=== PATIENT | female | born 1975 | race African-American/Black ===

== ENCOUNTER 2017-06-02 18:00 | Emergency (ER) | payer OTHER ==
[2017-06-02 18:14] VITALS: BP 126/68; PULSE 111; TEMP 97.6; BMI 33.0
[2017-06-02] MEDS ORDERED: CYCLOBENZAPRINE HCL 10 MG TABLET (FP) PO ONE (18:14)
[2017-06-02] MEDS ORDERED: HYDROmorphone HCL CARPU-JECT 1 MG/1 ML DISP.SYRIN IVPB ONE ×2 (18:14→19:03)
[2017-06-02] MEDS ORDERED: KETOROLAC TROMETHAMINE 30 MG/1 ML VIAL IVPUSH ONE (18:14)
[2017-06-02] MEDS ORDERED: CYCLOBENZAPRINE HCL 10 MG TABLET (FP) ONE (18:18)
[2017-06-02] MEDS ORDERED: HYDROmorphone HCL CARPU-JECT 1 MG/1 ML DISP.SYRIN ONE (18:28)
[2017-06-02] MEDS ORDERED: KETOROLAC TROMETHAMINE 30 MG/1 ML VIAL ONE (18:28)
[2017-06-02 18:49] LABS: ANION GAP 14 (8-16); BASOPHIL 3.8 % (0-2.0); CALCIUM 9.5 mg/dl (8.4-10.2); CO2 19 mmol/L (22-28); CREATININE 0.9 mg/dl (0.6-1.3); EOSINOPHIL 0.5 % (0-4.5); GLUCOSE,RANDOM 78 mg/dl (74-106); MCH 29.6 pg (25.7-33.7); MCHC 33.8 g/dl (32.0-36.0); MEAN CELL VOLUME 87.8 fl (80-96); MEAN PLT VOLUME 8.3 fl (7.5-11.1); NEUTROPHILS 74.3 % (42.8-82.8); PLATELET COUNT 325 K/MM3 (134-434); RDW 14.9 % (11.6-15.6); WHITE BLOOD COUNT 7.4 K/mm3 (4.0-10.8)
--- NOTE | 2017-06-02 19:03 | PDOC ---
History of Present Illness - General History Source: Patient Exam Limitations: No Limitations - History of Present Illness Initial Comments: 06/02/17 19:04 Patient is a 41 year old female with no pmhx who presents today s/p fall. 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 She notes that the stairs that she was walking up need to be fixed and her company has placed many complaints to the [employer]. The patient states that she remained on the floor until EMS arrived. She now reports lower back pain, neck pain, L wrist and L ankle pain. Patient states that she is unable to move secondary to pain. She reports hitting her head during the fall. She denies LOC. PSH - gastric sleeve January NKA <Brooke Waddell - Last Filed: 06/02/17 19:04> - General History Source: Patient Exam Limitations: No Limitations <Jessica Diaz - Last Filed: 06/06/17 08:43> - General Chief Complaint: Injury Stated Complaint: SLIP & FALL, HEAD, NECK, LF ANKLE, LF WRIST PAIN Time Seen by Provider: 06/02/17 18:05 Past History <Brooke Waddell - Last Filed: 06/02/17 19:04> - Surgical History Abdominal Surgery: Yes (GASTRIC SLEEVE) - Psycho/Social/Smoking Cessation Hx Anxiety: No Suicidal Ideation: No Smoking History: Never smoked Have you smoked in the past 12 months: No Information on smoking cessation initiated: No Hx Alcohol Use: (weekends) <Jessica Diaz - Last Filed: 06/06/17 08:43> - Past Medical History Allergies/Adverse Reactions: Allergies Allergy/AdvReac Type Severity Reaction Status Date / Time No Known Allergies Allergy Verified 06/02/17 18:06 Home Medications: Ambulatory Orders Cyclobenzaprine HCl [Flexeril 10 mg] 10 mg PO BID #14 tablet 06/02/17 Multivitamins [Tab-A-Vit -] 1 tab PO DAILY 06/02/17 Naproxen [Naprosyn -] 500 mg PO BID #14 tablet 06/02/17 Review of Systems - Review of Systems Able to Perform ROS?: Yes Comments:: 06/02/17 19:04 GENERAL/CONSTITUTIONAL: No: fever, chills, weakness, loss of appetite. HEAD, EYES, EARS, NOSE AND THROAT: No: change in vision, ear pain, discharge, sore throat, throat swelling. CARDIOVASCULAR: No: chest pain, lightheadedness, palpitations, syncope RESPIRATORY: No: cough, shortness of breath, wheezing, hemoptysis, stridor. GASTROINTESTINAL: No: nausea, vomiting, abdominal cramping, diarrhea, rectal bleeding, constipation. GENITOURINARY: No: dysuria, hematuria, frequency, urgency, flank pain. MUSCULOSKELETAL: Yes: back pain, neck pain, left wrist pain and left ankle pain SKIN: No: lesions, pallor, rash or easy bruising. NEUROLOGIC: No: headache, vertigo, paresthesias, weakness ENDOCRINE: No: unexplained weight gain or loss HEMATOLOGIC/LYMPHATIC: No: anemia, easy bleeding, swelling nodes <Brooke Waddell - Last Filed: 06/02/17 19:04> *Physical Exam - Vital Signs Last Vital Signs Temp Pulse Resp BP Pulse Ox 97.6 F 111 H 20 126/68 96 06/02/17 18:00 06/02/17 18:00 06/02/17 18:00 06/02/17 18:00 06/02/17 18:00 - Physical Exam Comments: 06/02/17 19:05 GENERAL: The patient is in no acute distress. HEAD: Normal with no signs of trauma. EYES: PERRLA, EOMI, sclera anicteric, conjunctiva clear. ENT: Ears normal, nares patent, oropharynx clear without exudates. Moist mucous membranes. NECK: Normal range of motion, supple without lymphadenopathy, JVD, or masses. LUNGS: Breath sounds equal, clear to auscultation bilaterally. No wheezes, and no crackles. HEART:Regular rate and rhythm, normal S1 and S2 without murmur, rub or gallop. ABDOMEN: Soft, nontender, normoactive bowel sounds. No guarding, no rebound. EXTREMITIES: (+)Left forearm abrasion, Can move all extremities, Sensation intact. Normal range of motion, no edema. No clubbing or cyanosis. No erythema. NEUROLOGICAL:(+)Answers all questions. A&OX3. Cranial nerves II through XII grossly intact. Normal speech. No focal neurological deficits. MUSCULOSKELETAL: (+)Diffusely tender over cervical and lower back SKIN: Warm, Dry, normal turgor, no rashes or lesions noted. <Brooke Waddell - Last Filed: 06/02/17 19:04> - Vital Signs Last Vital Signs Temp Pulse Resp BP Pulse Ox 97.6 F 111 H 20 126/68 96 06/02/17 18:00 06/02/17 18:00 06/02/17 18:00 06/02/17 18:00 06/02/17 18:00 <Jessica Diaz - Last Filed: 06/06/17 08:43> ED Treatment Course - LABORATORY CBC & Chemistry Diagram: 06/02/17 18:20 06/02/17 18:20 - ADDITIONAL ORDERS Additional order review: Laboratory Results 06/02/17 06/02/17 18:20 18:20 Sodium 139 Potassium 3.5 Chloride 106 Carbon Dioxide 19 L Anion Gap 14 BUN 10 Creatinine 0.9 Random Glucose 78 Calcium 9.5 Serum , Qual Negative 06/02/17 18:20 RBC 4.42 MCV 87.8 MCHC 33.8 RDW 14.9 MPV 8.3 Neutrophils % 74.3 Lymphocytes % 16.7 Monocytes % 4.7 Eosinophils % 0.5 Basophils % 3.8 H - Medications Given in the ED: ED Medications Discontinued Medications Generic Name Dose Route Start Last Admin Trade Name Tena PRN Reason Stop Dose Admin Cyclobenzaprine HCl 10 mg 06/02/17 18:14 06/02/17 18:25 Flexeril - PO 06/02/17 18:15 10 mg ONCE ONE Administration Hydromorphone HCl 0.5 mg 06/02/17 18:14 06/02/17 18:30 Dilaudid Injection - IVPB 06/02/17 18:15 0.5 mg NOW ONE Administration Ketorolac Tromethamine 30 mg 06/02/17 18:14 06/02/17 18:35 Toradol Injection - IVPUSH 06/02/17 18:15 30 mg ONCE ONE Administration <Brooke Waddell - Last Filed: 06/02/17 19:04> - LABORATORY CBC & Chemistry Diagram: 06/02/17 18:20 06/02/17 18:20 - ADDITIONAL ORDERS Additional order review: Laboratory Results 06/02/17 06/02/17 18:20 18:20 Sodium 139 Potassium 3.5 Chloride 106 Carbon Dioxide 19 L Anion Gap 14 BUN 10 Creatinine 0.9 Random Glucose 78 Calcium 9.5 Serum , Qual Negative 06/02/17 18:20 RBC 4.42 MCV 87.8 MCHC 33.8 RDW 14.9 MPV 8.3 Neutrophils % 74.3 Lymphocytes % 16.7 Monocytes % 4.7 Eosinophils % 0.5 Basophils % 3.8 H - RADIOLOGY Radiology Studies Ordered: Category Date Time Status CERVICAL SPINE CT W/O CONTR [CT] Stat CT Scan 06/02/17 18:[address] WITHOUT CONTRAST [CT] Stat CT Scan 06/02/17 18:[address] W/O CONTRAST [CT] Stat CT Scan 06/02/17 18:15 Ordered ANKLE & FOOT-LEFT* [RAD] Stat Radiology 06/02/17 18:20 Ordered WRIST-LEFT [RAD] Stat Radiology 06/02/17 18:15 Ordered - Medications Given in the ED: ED Medications Discontinued Medications Generic Name Dose Route Start Last Admin Trade Name Freq PRN Reason Stop Dose Admin Cyclobenzaprine HCl 10 mg 06/02/17 18:14 06/02/17 18:25 Flexeril - PO 06/02/17 18:15 10 mg ONCE ONE Administration <Jessica Diaz - Last Filed: 06/06/17 08:43> Medical Decision Making - Medical Decision Making 06/02/17 19:02 A portion of this note was documented by scribe services under my direction. I have reviewed the details of the note, within reason, and agree with the documentation with the following case summary and management plan written by me. Nursing documentation reviewed and incorporated into medical decision making This patient is a 41 yo F, no significant past medical history Pt presents to the ER via EMS s/p fall Pt presents withOUT cervical collar, appearing very uncomfortable. 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 Pt screams in pain with even small movements I am unable to completely examine her as even minimal palpation/movement causes patient to scream in pain Pt given Dilaudid and Toradol and Flexeril As no cervical collar was applied, we have applied cervical collar After pain medications given, we were able to cut off her shirt and remove bra Pt is able to delineate the locations of her pain We are still not able to move this patient at all on account of severe pain Left wrist is painful Occipital scalp, cervical spine painful Pt states lower back is painful Will do basic labs in the event this patient is unable to be discharged Will do Head, Cervical spine, Lumbar spine CT Will give additional pain medications Pt signed out to Dr Monte pending re assessment, imaging, labs Clinical impression: possible fracture? vs musculoskeletal pain <Jessica Diaz - Last Filed: 06/06/17 08:43> *DC/Admit/Observation/Transfer - Attestations Scribe Attestion: 06/02/17 19:06 Documentation prepared by TREMAINE Sutherland, acting as medical records manager for Jessica Diaz MD. <Brooke Waddell - Last Filed: 06/02/17 19:04> <Jessica Diaz - Last Filed: 06/06/17 08:43> Diagnosis at time of Disposition: Cervical strain, acute Qualifiers: Qualified Code(s): S16.1XXA - Strain of muscle, fascia and tendon at neck level , initial encounter Back strain Qualifiers: Qualified Code(s): S39.012A - Strain of muscle, fascia and tendon of lower back , initial encounter Fall Qualifiers: Qualified Code(s): W19.XXXA - Unspecified fall, initial encounter - Discharge Dispostion Disposition: HOME Condition at time of disposition: Stable - Prescriptions Prescriptions: Cyclobenzaprine HCl [Flexeril 10 mg] 10 mg PO BID #14 tablet Naproxen [Naprosyn -] 500 mg PO BID #14 tablet - Patient Instructions Printed Discharge Instructions: DI for Closed Head Injury Additional Instructions: For the pain take naproxen 1 tablet twice a day. In addition to the naproxen you can also take Tylenol. For muscle spasm take Flexeril one tablet twice a day the Flexeril may make you drowsy so do not take it if you need to work or do anything that requires your concentration. Follow-up with an orthopedist if not improved in 3-4 days. If you need an orthopedist call Dr. Liang at [phone] for an appointment. Someone should check on you once tonight during the night. You should be arousable to your Normal level of arousability for that time of the night. If you have been vomiting, have had a seizure, or you are unable to be aroused or the person checking on you is concerned that there has been a change in your mental status they should call 911 and have you brought back to the emergency department. Return to the emergency department immediately with ANY new, persistent or worsening symptoms. Continue any medications as previously prescribed by your physician. You should follow up with your primary doctor as soon as possible regarding today's emergency department visit. . Please make sure your doctor reviews the results of your emergency evaluation. Thank you for coming to the Emergency Department today for your care. It was a pleasure to see you today. Please note that your evaluation is INCOMPLETE until you follow-up with your doctor. - Post Discharge Activity Work/School Note: Back to Work
--- NOTE | 2017-06-02 19:21 | PDOC ---
*Physical Exam - Vital Signs Last Vital Signs Temp Pulse Resp BP Pulse Ox 97.6 F 111 H 20 126/68 96 06/02/17 18:00 06/02/17 18:00 06/02/17 18:00 06/02/17 18:00 06/02/17 18:00 ED Treatment Course - LABORATORY CBC & Chemistry Diagram: 06/02/17 18:20 06/02/17 18:20 - ADDITIONAL ORDERS Additional order review: Laboratory Results 06/02/17 06/02/17 18:20 18:20 Sodium 139 Potassium 3.5 Chloride 106 Carbon Dioxide 19 L Anion Gap 14 BUN 10 Creatinine 0.9 Random Glucose 78 Calcium 9.5 Serum , Qual Negative 06/02/17 18:20 RBC 4.42 MCV 87.8 MCHC 33.8 RDW 14.9 MPV 8.3 Neutrophils % 74.3 Lymphocytes % 16.7 Monocytes % 4.7 Eosinophils % 0.5 Basophils % 3.8 H - Medications Given in the ED: ED Medications Discontinued Medications Generic Name Dose Route Start Last Admin Trade Name Tena PRN Reason Stop Dose Admin Cyclobenzaprine HCl 10 mg 06/02/17 18:14 06/02/17 18:25 Flexeril - PO 06/02/17 18:15 10 mg ONCE ONE Administration Hydromorphone HCl 0.5 mg 06/02/17 18:14 06/02/17 18:30 Dilaudid Injection - IVPB 06/02/17 18:15 0.5 mg NOW ONE Administration Hydromorphone HCl 0.5 mg 06/02/17 19:03 06/02/17 19:05 Dilaudid Injection - IVPB 06/02/17 19:04 0.5 mg NOW ONE Administration Ketorolac Tromethamine 30 mg 06/02/17 18:14 06/02/17 18:35 Toradol Injection - IVPUSH 06/02/17 18:15 30 mg ONCE ONE Administration Progress Note - Progress Note Progress Note: Care of this patient was transferred to ms from Dr. Diaz at 1900 hrs. 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 Patient is complaining of neck and back pain. Patient also hit her head. Patient has a head CT, cervical neck CT and lumbar spine CT pending. Indication that patient has plain films of her ankle and foot pending. 21:[address] negative for any acute pathology Cervical spine CT negative for any fracture subluxation or acute pathology Lumbar spine CT negative for any fracture subluxation or acute pathology Plain films left ankle foot and wrist read by me negative for any acute pathology Assessment and plan: This is a 41-year-old female who comes in complaining of pain status post falling while at work. Patient had CAT scans and plain films all of which were negative. Patient given medication here in the emergency room dye lauded and Flexeril. Patient given prescriptions for naproxen and Flexeril to her pharmacy and will follow-up with orthopedist. *DC/Admit/Observation/Transfer Diagnosis at time of Disposition: Cervical strain, acute Qualifiers: Encounter type: initial encounter Qualified Code(s): S16.1XXA - Strain of muscle, fascia and tendon at neck level, initial encounter Back strain Qualifiers: Encounter type: initial encounter Qualified Code(s): S39.012A - Strain of muscle, fascia and tendon of lower back, initial encounter Fall Qualifiers: Encounter type: initial encounter Qualified Code(s): W19.XXXA - Unspecified fall, initial encounter - Discharge Dispostion Disposition: HOME Condition at time of disposition: Stable - Patient Instructions Printed Discharge Instructions: DI for Closed Head Injury Additional Instructions: For the pain take naproxen 1 tablet twice a day. In addition to the naproxen you can also take Tylenol. For muscle spasm take Flexeril one tablet twice a day the Flexeril may make you drowsy so do not take it if you need to work or do anything that requires your concentration. Follow-up with an orthopedist if not improved in 3-4 days. If you need an orthopedist call Dr. Liang at [phone] for an appointment. Someone should check on you once tonight during the night. You should be arousable to your Normal level of arousability for that time of the night. If you have been vomiting, have had a seizure, or you are unable to be aroused or the person checking on you is concerned that there has been a change in your mental status they should call 911 and have you brought back to the emergency department. Return to the emergency department immediately with ANY new, persistent or worsening symptoms. Continue any medications as previously prescribed by your physician. You should follow up with your primary doctor as soon as possible regarding today's emergency department visit. . Please make sure your doctor reviews the results of your emergency evaluation. Thank you for coming to the Emergency Department today for your care. It was a pleasure to see you today. Please note that your evaluation is INCOMPLETE until you follow-up with your doctor.
[2017-06-02] MEDS ORDERED: DEXAMETHASONE SOD PHOSPHATE 10 MG/1 ML VIAL IVPUSH ONE (19:31)
[2017-06-02] MEDS ORDERED: DEXAMETHASONE SOD PHOSPHATE 10 MG/1 ML VIAL ONE (19:38)
[2017-06-02] MEDS ORDERED: OXYCODONE/APAP 5/325MG COMBO TABLET PO ONE (21:49)
[2017-06-02] MEDS ORDERED: OXYCODONE/APAP 5/325MG COMBO TABLET ONE (21:51)
== END 2017-06-02 21:59 | disposition home or self-care (01) ==
LOC: FER 18:00
PROC: 3E033GC Introduction of Other Therapeutic Substance into Peripheral Vein, Percutaneous Approach (ICD-10-PCS; principal; 2017-06-02)
PROC: 3E033NZ Introduction of Analgesics, Hypnotics, Sedatives into Peripheral Vein, Percutaneous Approach (ICD-10-PCS; 2017-06-02)
PROC: 3E0333Z Introduction of Anti-inflammatory into Peripheral Vein, Percutaneous Approach (ICD-10-PCS; 2017-06-02)
DX: S16.1XXA Strain of muscle, fascia and tendon at neck level, initial encounter (principal); S39.012A Strain of muscle, fascia and tendon of lower back, initial encounter; W10.9XXA Fall (on) (from) unspecified stairs and steps, initial encounter; Y93.89 Activity, other specified; Y92.9 Unspecified place or not applicable; Y99.0 Civilian activity done for income or pay; Z98.84 Bariatric surgery status
CPT/HCPCS: 36415; 70450-TC; 72125-TC; 72131-TC; 73110-TC-LT; 73610-TC-LT; 73630-TC-LT; 80048; 84703; 85025; 99283-25